=== PATIENT | female | born 1980 | race Caucasian/White ===

== ENCOUNTER 2016-10-05 12:56 | Inpatient (IN) | payer BC ==
[~2016-10-05] VITALS: Ht 165.1 cm; Wt 76.1 kg
--- NOTE | ~2016-10-05 | HP ---
PATIENT'S NAME: CHANDAN HORN [facility] AGE: 36 Y [address] ROOM: [place] [address] LOCATION: [facility] [place] ADMIT DATE: 10/05/2016 History & Physical DISCHARGE DATE: FAMILY PHYSICIAN: Emanuel Emerson MD ATTENDING PHYSICIAN: ANA MARIA KNOX DATE OF SERVICE: CHIEF COMPLAINT: Abdominal pain. HISTORY OF PRESENT ILLNESS: A 36-year-old lady with a past medical history of ulcerative colitis for the past 16 years, currently on vedolizumab presented to the emergency department with abdominal pain, which is located in the left lower quadrant, crampy in nature, 10 x 10 relieved with medication in the emergency department, 4 x 10 associated with multiple episodes of diarrhea, runny in nature. No blood in it, not associated with any fever, but a lot of diaphoresis in the middle of the night. She usually had bad mornings secondary to her ulcerative colitis with multiple episodes of diarrhea, but in the last 4-5 days, the diarrhea has increased a lot. 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 On further inquiry, she denied any headache, dizziness, trouble with the eyes, chest pain, shortness of breath, bruit, trouble with the breathing, cough, sputum production, or any burning on urination. REVIEW OF SYSTEMS: All other systems were reviewed and were negative except what is mentioned in the HPI. PAST MEDICAL HISTORY: Ulcerative colitis, hypertension, history of CMV infection. ALLERGIES: THE PATIENT IS ALLERGIC TO PENICILLIN, SULFA, KEFLEX, AND ASPIRIN. MEDICATIONS: Currently known medications are vedolizumab. FAMILY HISTORY: Significant for coronary artery disease in both mom and dad. SOCIAL HISTORY: She lives in [place]. No alcohol or drug abuse. PHYSICAL EXAMINATION: PATIENT'S NAME: CHANDAN HORN [facility] AGE: 36 Y [address] ROOM: [place] [address] LOCATION: [facility] [place] ADMIT DATE: 10/05/2016 History & Physical DISCHARGE DATE: FAMILY PHYSICIAN: Emanuel Emerson MD ATTENDING PHYSICIAN: ANA MARIA KNOX VITAL SIGNS: Pulse of 82, blood pressure 131/76, afebrile, respiratory rate 16. GENERAL: No acute distress, alert and oriented x3. HEENT: Head: Atraumatic, normocephalic. Eyes: Nonicteric. No pallor. Oropharynx: Moist mucous membranes. CARDIOVASCULAR: S1, S2. No murmurs, gallops, or rubs. LUNGS: Clear to auscultation bilaterally. ABDOMEN: Soft, tender in the left lower quadrant. Bowel sounds are exaggerated. No rebound tenderness or rigidity noted. EXTREMITIES: No clubbing, cyanosis, or edema. PSYCH: Normal affect, mood, and speech. NEURO: Cranial nerves 2-12 intact. No motor or sensory deficit noted. SKIN: No blemishes or rashes noted. MUSCULOSKELETAL: No muscle tenderness or joint swelling noted. LABORATORY DATA: CAT scan of the abdomen was done in the emergency department, which was unremarkable. All the lab work including CBC, CMP, gastric viral panel, and a C difficile assay was negative. ASSESSMENT: 1. Questionable ulcerative colitis flare-up. 2. Hypertension. 3. Abdominal pain. PLAN: We are going to admit this lady. Start her on IV fluids and start her on ciprofloxacin. She developed bloody diarrhea with metronidazole in the past. Gastroenterology consultation has been obtained. There are planning to do a flexible sigmoidoscopy in the morning. There is some serious concern regarding narcotic dependence in this patient. She has been fired by multiple physicians in the past for drug-seeking behavior. We will keep that in mind. Provide adequate and judicious pain control with dicyclomine and morphine. Nausea control with Reglan as well as Zofran. Clear liquid diet for now. N.p.o. midnight. SCDs for now. If hospitalization prolongs, we will consider chemical prophylaxis. The patient is full code. MD VIKKI ADAN/parag PATIENT'S NAME: CHANDAN HORN [facility] AGE: 36 Y [address] ROOM: [place] [address] LOCATION: [facility] [place] ADMIT DATE: 10/05/2016 History & Physical DISCHARGE DATE: FAMILY PHYSICIAN: Emanuel Emerson MD ATTENDING PHYSICIAN: ANA MARIA KNOX /[id number] D: 9 T: HISTORY & PHYSICAL
--- NOTE | ~2016-10-05 | ER ---
PATIENT'S NAME: CHANDAN HORN [facility] AGE: 36 Y [address] ROOM: [place] [address] LOCATION: [facility] [place] ADMIT DATE: 10/05/2016 ER/Outpatient Report DISCHARGE DATE: FAMILY PHYSICIAN: Emanuel Emerson MD ATTENDING PHYSICIAN: ANA MARIA MINOR Time of Arrival: 1256 hours. Time of Evaluation: 1315 hours. CHIEF COMPLAINT: Abdominal pain and diarrhea. HISTORY OF PRESENT ILLNESS: This is a 36-year-old female who presents to the ER, who states she has a history of ulcerative colitis. She states over the past week and half, she has had increased abdominal pain and diarrhea. She states she has had approximately 15 to 18 loose mucousy stools every day over the past week and a half. She states that she has had nausea with no vomiting. She states she has noticed some blood in her stool. She states she does have a history of CMV and C. difficile 2 years ago. She has been doctoring in [place] for ulcerative colitis and they have her on a new medication and she has had good success with it over the past year. She thought that maybe that her symptoms would go away by now but she has not. The patient states she has had no troubles with urination, no fever or chills at home. ALLERGIES: PENICILLIN, SULFA, ASPIRIN, AND KEFLEX. MEDICATIONS: Please see medications list, nurse's notes. PAST MEDICAL HISTORY: Ulcerative colitis. SOCIAL HISTORY: Denies smoking, drug, or alcohol use. REVIEW OF SYSTEMS: All systems reviewed and were negative with the exception of those discussed in the HPI. PHYSICAL EXAMINATION: VITAL SIGNS: Weight 76.1 kg taken, blood pressure 166/105, pulse 89, respirations 20, temperature 98 degrees tympanically, and saturations 99% on room air. Sibley Coma Score is 15. PATIENT'S NAME: CHANDAN HORN [facility] AGE: 36 Y [address] ROOM: [place] [address] LOCATION: [facility] [place] ADMIT DATE: 10/05/2016 ER/Outpatient Report DISCHARGE DATE: FAMILY PHYSICIAN: Emanuel Emerson MD ATTENDING PHYSICIAN: ANA MARIA MINOR GENERAL: Alert, anxious appearing female, in moderate distress. HEENT: Head: Normocephalic. She does display moist mucous membranes. Eyes: Pupils are equal and reactive to light. NECK: Supple. No lymphadenopathy. LUNGS: Clear to auscultation bilaterally. HEART: Regular rate and rhythm. ABDOMEN: Soft. She has diffuse tenderness throughout her abdomen. She has more tenderness on the left side of her abdomen than the right. She does guard; has no rebound tenderness. She has good bowel sounds throughout. EXTREMITIES: No clubbing or cyanosis. She has full range of motion of all limbs. SKIN: Warm, dry, and intact. NEURO: Cranial nerves 2 through 12 grossly intact. Gait is steady without assistance. LABORATORY DATA: CBC: White count is 9.2, hemoglobin is 13.9, platelets 282, A1c is 5.5. Sedimentation rate is 4. CMS is unremarkable. CRP is less than 0.29. HCG is less than 1.0. Stool series was done and nothing was detected on that. CT scan was done, no acute findings. She has a mild fatty liver. IMPRESSION: 1. Ulcerative colitis. 2. Abdominal pain. ASSESSMENT AND PLAN: We did start an IV here in the emergency room and did give her IV fluids. We did give her a total of 8 mg of Zofran for her nausea and a total of 1 mg of Dilaudid over her ER stay here as well. The patient states that she does not know how she will control her pain at home, so I did speak with Dr. Lee who is on-call for Gastroenterology and he would like to have her be put in the hospital to get her pain under control. She does not have a primary care physician in [place], she states; therefore, I called the Hospitalist Service and Dr. Minor will be admitting the patient and Dr. Lee will consult. The patient and the patient's friend understand and agree with care. DANNY EDWRADS PA-C FOR MD SHARON HURST/parag PATIENT'S NAME: CHANDAN HORN [facility] AGE: 36 Y [address] ROOM: [address] [address] LOCATION: [facility] [place] ADMIT DATE: 10/05/2016 ER/Outpatient Report DISCHARGE DATE: FAMILY PHYSICIAN: Emanuel Emerson MD ATTENDING PHYSICIAN: ANA MARIA MINOR /[id number] d: 10/06/16 0457 t: 10/14/16 0731, OUTPATIENT REPORT
--- NOTE | ~2016-10-05 | CON ---
PATIENT'S NAME: CHANDAN HORN [facility] AGE: 36 Y [address] ROOM: [address] [place] [id number] LOCATION: [facility] [place] ADMIT DATE: 10/05/2016 Consultation DISCHARGE DATE: 10/06/2016 FAMILY PHYSICIAN: Emanuel Emerson MD ATTENDING PHYSICIAN: ANA MARIA MINOR DATE OF CONSULTATION: 10/05/2016 REFERRING PHYSICIAN: Dk Soria MD REASON FOR CONSULTATION: Abdominal pain, ulcerative colitis. HISTORY OF PRESENT ILLNESS: This is a 36-year-old female who was admitted through the emergency room. She does have a past medical history of ulcerative colitis diagnosed approximately 16 years ago. The patient has previously been on treatment for ulcerative colitis including mesalamine, Imuran, as well as Remicade. Over the past year, she was changed over to Entyvio and states that she has been doing well. She does follow with a bail attacher out of [place] who manages her care. The patient presented to the emergency room with increasing abdominal pain located in the left lower quadrant, crampy in nature. She also states that she has had multiple episodes of diarrhea that has been loose in nature. She does state that intermittently there has been some blood. Denies any associated fever or chills with it. She does state that she has had night sweats over the past few days. 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 She states that one of her patients did have the "gastric flu" and originally, she thought that this may be the cause of her symptoms, though the pain has intensified. The patient denies any acute chest pain, chest pressure, or shortness of breath. She was evaluated in the emergency room with CT scan done that was unremarkable. All laboratory work was completed including a normal ESR, CRP, as well as C difficile was negative. She does have a history of C diff with the last known episode approximately 2 years ago. The patient denies any acute chest pain, chest pressure, shortness of breath, fever, or chills. PAST MEDICAL HISTORY: Ulcerative colitis, currently on Entyvio; hypertension; and history of CMV infection. SOCIAL HISTORY: The patient lives in [place]. She denies any alcohol or drug use. FAMILY HISTORY: The patient's parents both have coronary artery disease. PATIENT'S NAME: CHANDAN HORN [facility] AGE: 36 Y [address] ROOM: [address] [place] [id number] LOCATION: [facility] [place] ADMIT DATE: 10/05/2016 Consultation DISCHARGE DATE: 10/06/2016 FAMILY PHYSICIAN: Emanuel Emerson MD ATTENDING PHYSICIAN: ANA MARIA MINOR ALLERGIES: PENICILLIN, SULFA, KEFLEX, AND ASPIRIN. CURRENT MEDICATIONS: Please refer to the medication administration record. REVIEW OF SYSTEMS: All point review of systems was completed, all were negative except for those identified in the History of Present Illness. PHYSICAL EXAMINATION: GENERAL: A pleasant, 36-year-old female who appears to be in no acute distress. VITAL SIGNS: Temperature 98.6, pulse of 82, respirations of 16, blood pressure 132/89, and oxygen saturation is 98% on room air. SKIN: [place], warm, and dry. No jaundice. HEENT: Head is normocephalic and atraumatic. Pupils are equal, round, and reactive to light. Sclerae are clear, nonicteric. Oral mucosa is pink and moist. No thyromegaly. NECK: Soft and supple. CARDIOVASCULAR: Regular. Normal S1 and S2. RESPIRATORY: Respirations even and unlabored. Lungs clear to auscultation. ABDOMEN: Soft and round. Tender in the left lower quadrant to palpation. Bowel sounds are positive x4 quadrants. MUSCULOSKELETAL: No muscle weakness or atrophy. EXTREMITIES: No edema. NEUROLOGIC: Grossly nonfocal. LABORATORY AND DIAGNOSTIC DATA: As above. ASSESSMENT AND PLAN: Again, this is a pleasant, 36-year-old female with known ulcerative colitis for 15+ years. She currently is on Entyvio treatment and managed by Gastroenterology from [place]. In lieu of the patient's acute abdominal pain and "flare," we will go forth with a flexible sigmoidoscopy to evaluate the colon disease. This was discussed in depth with the patient. The patient will be given tap water enema prior to procedure for evaluation of the colon. Risks, benefits, and alternatives were discussed with the patient per Dr. Dk Soria. Patient verbalizes understanding. Further recommendations to be given status post flexible sigmoidoscopy. Thank you for this consult. PATIENT'S NAME: CHANDAN HORN [facility] AGE: 36 Y [address] ROOM: [address] [address] LOCATION: [facility] [place] ADMIT DATE: 10/05/2016 Consultation DISCHARGE DATE: 10/06/2016 FAMILY PHYSICIAN: Emanuel Emerson MD ATTENDING PHYSICIAN: ANA MARIA MINOR APRN FOR DK SORIA MD MMF/modl /[id number] CC: Ana Maria Minor MD d: 10/06/16 1449 t: 11/13/16 0821, CONSULTATION REPORT
[~2016-10-05 12:56] MED LIST: AMBIEN5 MG PO; BENTYL10 MG PO; BENTYL20 MG PO; DELTASONE20 MG PO; DELZICOL400 MG PO; DEPO-PROVE150 MG/1 M IM; DILAUDID4 MG PO; DURAGESIC 12 M12 MCG TOP; DURAGESIC 25MC25 MCG TOP; FAMOTIDINE20 MG PO; FLAGYL 500500 MG/100 IV; IMURAN50 MG PO; KLONOPIN2 MG PO; LIALDA1.2 GM PO; NARCAN IV; PHENERGAN25 M1 PO; PHENERGAN25 MG/1 M1 IM; PRINIVIL (ZESTR20 MG PO; PROZAC40 MG PO; ROWASA60 ML R; SOLU-MEDRO125 MG/2 M IV; TOPROL XL25 MG PO; TYLENOL EXTRA500 MG PO; ZANAFLEX4 M2 PO; ZANAFLEX4 MG PO; ZOFRAN ODT8 MG SL; ZOFRAN4 M1 PO
[2016-10-05 13:27] LABS: BASOPHIL # 0.1 K/uL (0.0-0.2); BASOPHIL % 0.5 %; EOSINOPHIL # 0.2 K/uL (0.0-0.5); EOSINOPHIL % 2.2 %; HEMATOCRIT 41.4 % (33.0-46.0); HEMOGLOBIN 13.9 g/dL (11.0-15.0); IMMATURE GRANULOCYTE % 0.3 %; LYMPHOCYTE # 2.8 K/uL (0.8-4.0); LYMPHOCYTE % 30.8 %; MCH 30.9 pg (27.0-34.0); MCHC 33.6 gm/dL (32.0-36.5); MONOCYTE # 0.6 K/uL (0.0-1.0); MONOCYTE % 6.3 %; MPV 10.6 fl (9.4-12.4); NEUTROPHIL # (ANC) 5.5 K/uL (1.8-7.8); NEUTROPHIL % 59.9 %; NRBC % 0 /100WBC (0-0.00); PLATELET COUNT 282 K/uL (150-450); RDW-CV 12.4 % (11.9-14.6); WBC 9.2 K/uL (4.0-11.0)
[2016-10-05 13:45] LABS: ALBUMIN 4.4 gm/dL (3.5-5.0); ALK PHOS 103 IU/L (33-138); ALT 48 IU/L (12-78); ANION GAP 13.2 (10.0-19.0); AST 19 IU/L (10-40); BLOOD UREA NITROGEN 11 mg/dL (6-24); CALCIUM 9.2 mg/dL (8.5-10.5); CHLORIDE 104 mMol/L (96-110); CO2 23 mMol/L (22-32); CREATININE 0.8 mg/dL (0.5-1.1); POTASSIUM 4.2 mMol/L (3.7-5.1); SODIUM 136 mMol/L (135-145); TOTAL BILIRUBIN 0.7 mg/dL (0.0-1.5); TOTAL PROTEIN 8.4 g/dL (6.0-8.4)
[2016-10-05 15:33] LABS: ADENOVIRUS F 40/41 Not Detected (Not Detect); ASTROVIRUS Not Detected (Not Detect); C DIFFICILE TOXIN A/B Not Detected (Not Detect); CAMPYLOBACTER SPECIES Not Detected (Not Detect); CRYPTOSPORIDIUM Not Detected (Not Detect); CYCLOSPORA CAYETANENSIS Not Detected (Not Detect); E. COLI (EPEC) Not Detected (Not Detect); E. COLI (ETEC) Not Detected (Not Detect); E. COLI (STEC) Not Detected (Not Detect); ENTAMOEBA HISTOLYTICA Not Detected (Not Detect); GIARDIA LAMBLIA Not Detected (Not Detect); NOROVIRUS GI/ GII Not Detected (Not Detect); PLESIOMONAS SPECIES Not Detected (Not Detect); ROTAVIRUS A Not Detected (Not Detect); SALMONELLA SPECIES Not Detected (Not Detect); SAPOVIRUS Not Detected (Not Detect); SHIGELLA AND EIEC Not Detected (Not Detect); VIBRIO CHOLERAE Not Detected (Not Detect); VIBRIO SPECIES Not Detected (Not Detect); YERSINIA ENTEROCOLITICA Not Detected (Not Detect)
[2016-10-05] MEDS ORDERED: ENTYVIO300 MG IV (17:43)
[2016-10-05] MEDS ORDERED: ZANAFLEX4 MG PO (17:44)
[2016-10-05] MEDS ORDERED: PROCTOFOAM15 GM R (17:45)
--- NOTE | 2016-10-05 17:53 | NUR ---
Pt is 36 y/o female admit for ulcerative colitis exacerbation/abd pain for hospitalist. GI to consult. Pt alert and oriented x3. Pt has had pain for about a week and a half. She states she has not had a flare up in quite awhile and thought she just had the flu. Came through ED. hx HOLLAND's,seasonal allergies, htn-no meds,RA,ulcerative colitis,bloating,hx bloody stools,abd pain,anxiety, depression,insomnia. Pt lives at home with her 6 yr old son. Plan is for Cipro IV and analgesics to manage pain.
--- NOTE | 2016-10-06 05:33 | NUR ---
Significant Event: AAOX3. NPO SINCE MIDNIGHT. PIV TO RIGHT HAND, IVF INFUSING. ON SCHEDULED REGLAN. PT HAD 7 STOOLS DURING SHIFT; LOOSE, WATERY, YELLOW. PT CONSISTENTLY C/O ABD PAIN 6-8/10 IN WHICH MORPHINE WAS GIVEN X4, LAST AT 0422. PT TO HAVE TAP WATER ENEMA PRIOR TO PROCEEDURE THIS AM. Follow up: PAIN
[2016-10-06] MEDS ORDERED: BENTYL10 MG PO (16:38)
[2016-10-06] MEDS ORDERED: NORCO 5-325 TA1 EACH PO (16:40)
[2016-10-06] MEDS ORDERED: FLORASTOR250 MG PO (16:42)
--- NOTE | 2016-10-06 16:57 | NUR ---
D:Orders received for patient to be dismissed. I:Dismissal instructions were prepared and reviewed with the patient by the virtual nurse using the computer technology. The following information was reviewed with the patient: diet and activity recommendations for home, home medications/new prescription medications, abnormal s/s to monitor for and to report to MD if any occur, and plans for follow up appointment with Dr. Emerson next Sunday at 11:00 am and with her GI Specialist in [place] in October as previously scheduled. Kali teaching given to and reviewed with the patient on the following topics: Preventing DVT, Andrew, Bentyl and Florastor. R:The patient verbalized understanding of the above teaching and denied further questions at this point in time. P:The patient's primary nurse, Micheline HUMPHRIES, was informed that the dismissal teaching had been completed. She was going to take the paperwork and prescriptions in for the patient to sign and have. The patient will be dismissed shortly. Brittany HUMPHRIES
--- NOTE | 2016-10-06 17:24 | NUR ---
Significant event:Pt is alert and oriented. VSS, on room air. IV dc'd at 1700 with no complications. Pt had hydrocodone at 1350. Copies of education, prescriptions, and dismissal intructions given to patient. Pt ambulated to the north front door, friend was taking her home.
== END 2016-10-06 17:10 | disposition disaster alternative care site (69) | DRG 392 ==
LOC: GMED 12:56 → GMSU 15:50
PROVIDERS: Emergency Medicine; Physician Assistant Medical; ADMIT Internal Medicine
PROC: 0DBN8ZX Excision of Sigmoid Colon, Via Natural or Artificial Opening Endoscopic, Diagnostic (ICD-10-PCS; principal; 2016-10-05)
DX: K52.9 Noninfective gastroenteritis and colitis, unspecified (principal); I10 Essential (primary) hypertension; K51.40 Inflammatory polyps of colon without complications; Z87.19 Personal history of other diseases of the digestive system; G89.4 Chronic pain syndrome
CPT/HCPCS: J0744; J1170; J1200; J2270; J2405; J2765; J7030; J7120; Q9967